=== PATIENT | female | born 2005 | race Caucasian/White ===

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

== ENCOUNTER 2024-04-22 15:18 | Emergency (ER) | payer SELFPAY ==
[~2024-04-22] VITALS: Ht 154.9 cm; Wt 72.0 kg
[~2024-04-22 15:18] MED LIST changes: +HYDROCO/APAP1 TA9 PO; +TRAMADOL HYDROC50 M1 PO
[2024-04-22] MEDS ORDERED: ONDANSETRON 4 MG/TAB ODT SL ONE (16:40)
[2024-04-22 17:45] LABS: URINE BLOOD DIPSTICK Negative (NEGATIVE); URINE COLOR Yellow; URINE GLUCOSE - DIPSTICK Negative (NEGATIVE); URINE KETONE 40 mg/dL (NEGATIVE); URINE LEUK ESTERASE Negative (NEGATIVE); URINE NITRITE - DIPSTICK Negative (Negative); URINE PH 8.5 (4.5-8.0); URINE PROTEIN - DIPSTICK Negative (NEG-TRACE)
[2024-04-22] MEDS ORDERED: ZOFRAN4 MG/TAB PO (17:50)
[2024-04-22 18:08] VITALS: BP 113/67
== END 2024-04-22 18:17 | disposition home or self-care (01) | DRG 833 ==
LOC: ED 15:18
PROVIDERS: Nurse Practitioner
DX: O26.899 Other specified pregnancy related conditions, unspecified trimester (principal); R11.2 Nausea with vomiting, unspecified; O99.330 Smoking (tobacco) complicating pregnancy, unspecified trimester; F17.290 Nicotine dependence, other tobacco product, uncomplicated; Z3A.00 Weeks of gestation of pregnancy not specified

== ENCOUNTER 2024-05-30 16:34 | Emergency (ER) | payer MEDICAID ==
[~2024-05-30] VITALS: Ht 154.9 cm; Wt 64.4 kg
[2024-05-30] VITALS (10 sets, daily range): BP systolic 94–127; BP diastolic 54–83
[~2024-05-30 16:34] MED LIST changes: +ZOFRAN4 MG/TAB PO
[2024-05-30] MEDS ORDERED: SODIUM CHLORIDE 0.9% 1,000 ML IV ONE ×2 (17:00→17:25)
[2024-05-30 17:29] LABS: BASO% 0.2 % (0-3); EOS% 1.1 % (0-8); HEMATOCRIT 38.4 % (37.0-47.0); HEMOGLOBIN 12.8 g/dl (12.0-16.0); IMMATURE GRANULOCYTES 0.2 % (0.0-5.0); LYMPH% 11.2 % (15-41); MEAN CORPUSCULAR HGB 27.8 pG CALC (26.0-32.0); MEAN CORPUSCULAR HGB CONC 33.3 g/dL CAL (32.0-36.0); NEUT# 8.11 thou/uL (2.00-7.15); NEUT% 77.3 % (42-76); RED BLOOD COUNT 4.61 mill/uL (4.20-5.60); RED CELL DISTRI WIDTH 14.6 % (11.5-15.5)
[2024-05-30 17:31] LABS: MEAN CELL VOLUME 83.3 fL CALC (80.0-100.0)
[2024-05-30 17:45] LABS: ALBUMIN 4.3 g/dL (3.2-5.0); BILIRUBIN, TOTAL 0.4 mg/dL (0.02-1.3); CREATININE 0.5 mg/dL (0.5-1.0); TOTAL PROTEIN 7.6 g/dL (6.3-8.2)
[2024-05-30 17:46] LABS: POTASSIUM 3.4 mmol/l (3.5-5.1)
[2024-05-30 18:09] LABS: URINE BLOOD DIPSTICK Negative (NEGATIVE); URINE GLUCOSE - DIPSTICK Negative (NEGATIVE); URINE KETONE Trace mg/dL (NEGATIVE); URINE NITRITE - DIPSTICK Negative (Negative); URINE PROTEIN - DIPSTICK 100 mg/dL (NEG-TRACE); URINE SPECIFIC GRAVITY >=1.030
[2024-05-30] MEDS ORDERED: ACETAMINOPHEN 500 MG TAB PO ONE (18:10)
[2024-05-30 18:12] LABS: URINE COLOR Dark yellow; URINE LEUK ESTERASE Small (NEGATIVE)
[2024-05-30 18:18] LABS: URINE SQUAMOUS EPITHELIAL CELL MANY EPI/hpf (0-FEW)
[2024-05-30] MEDS ORDERED: cefTRIAXone SODIUM 2 GM in SODIUM CHLORIDE 0.9% 100 ML IV ONE (18:40)
[2024-05-30] MEDS ORDERED: CEPHALEXIN500 M1 PO (18:41)
== END 2024-05-30 19:45 | disposition home or self-care (01) ==
LOC: ED 16:34
PROVIDERS: Family Medicine
DX: O23.40 Unspecified infection of urinary tract in pregnancy, unspecified trimester (principal); B95.7 Other staphylococcus as the cause of diseases classified elsewhere; N39.0 Urinary tract infection, site not specified; Z3A.00 Weeks of gestation of pregnancy not specified

== ENCOUNTER 2024-10-08 13:27 | Emergency (ER) | payer MEDICAID ==
[2024-10-08] VITALS (16 sets, daily range): BP systolic 95–117; BP diastolic 60–86
[~2024-10-08] VITALS: Ht 154.9 cm; Wt 61.0 kg
[~2024-10-08 13:27] MED LIST changes: +CEPHALEXIN500 M1 PO
[2024-10-08] MEDS ORDERED: SODIUM CHLORIDE 0.9% 1,000 ML IV ONE (14:00)
[2024-10-08] MEDS ORDERED: MORPHINE SULFATE 4 MG/ML VIAL IV ONE (14:00)
[2024-10-08 14:18] LABS: BASO% 0.1 % (0-3); EOS% 0.3 % (0-8); HEMATOCRIT 37.9 % (37.0-47.0); HEMOGLOBIN 12.5 g/dl (12.0-16.0); IMMATURE GRANULOCYTES 0.3 % (0.0-5.0); LYMPH% 6.3 % (15-41); MEAN CELL VOLUME 86.7 fL CALC (80.0-100.0); MEAN CORPUSCULAR HGB 28.6 pG CALC (26.0-32.0); MONO% 5.7 % (2-13); NEUT# 15.22 thou/uL (2.00-7.15); NEUT% 87.3 % (42-76); RED BLOOD COUNT 4.37 mill/uL (4.20-5.60); RED CELL DISTRI WIDTH 13.8 % (11.5-15.5)
[2024-10-08 14:21] LABS: URINE BILIRUBIN - DIPSTICK Negative (NEGATIVE); URINE BLOOD DIPSTICK Negative (NEGATIVE); URINE GLUCOSE - DIPSTICK Negative (NEGATIVE); URINE KETONE Negative (NEGATIVE); URINE NITRITE - DIPSTICK Negative (Negative); URINE PROTEIN - DIPSTICK Negative (NEG-TRACE); URINE SPECIFIC GRAVITY 1.015; URINE UROBILINOGEN - DIPSTICK 0.2 E.U./dL (0.2)
[2024-10-08 14:23] LABS: URINE LEUK ESTERASE Moderate (NEGATIVE)
[2024-10-08 14:25] LABS: URINE COLOR Straw
[2024-10-08 14:35] LABS: URINE BACTERIA FEW hpf; URINE SQUAMOUS EPITHELIAL CELL FEW EPI/hpf (0-FEW)
[2024-10-08 15:16] LABS: ALBUMIN 3.1 g/dL (3.2-5.0); BILIRUBIN, TOTAL 0.3 mg/dL (0.02-1.3); CREATININE 0.4 mg/dL (0.5-1.0); POTASSIUM 3.6 mmol/l (3.5-5.1)
== END 2024-10-08 18:13 | disposition short-term general hospital (02) ==
LOC: ED 13:27
PROVIDERS: Emergency Medicine
DX: O26.893 Other specified pregnancy related conditions, third trimester (principal); R10.30 Lower abdominal pain, unspecified; O23.43 Unspecified infection of urinary tract in pregnancy, third trimester; N39.0 Urinary tract infection, site not specified; Z3A.29 29 weeks gestation of pregnancy
CPT/HCPCS: J0696